=== PATIENT | female | born 1960 | race Caucasian/White ===

== ENCOUNTER 2016-07-19 10:15 | Emergency (ER) | payer OTHER ==
[2016-07-19 11:01] VITALS: RESP 16; TEMP 97.9
[2016-07-19] MEDS ORDERED: NS 500 ML IV ONE (11:11)
--- NOTE | 2016-07-19 11:44 | UCPHY ---
H & P Time Seen by Provider: 07/19/16 11:18 Patient Type: Established HPI/ROS: HPI Left-sided abdominal pain. 56-year-old female by private vehicle. Her is present with her. Prior history of breast cancer. No chemotherapy or radiation therapy currently or recently. Patient reports that she developed right-sided lateral abdominal pain last night at about 2:00 a.m.. Pain described as sharp and crampy. She was able to fall asleep. She woke up this morning at 6:00 a.m. and stated the pain was still present but had migrated higher to her left upper quadrant with radiation to the left flank area. ROS: Constitutional: No fever, no chills. No weakness. Eyes: No discharge. No changes in vision. ENT: No sore throat. No nasal congestion or rhinorrhea. Respiratory: No cough. No shortness of breath. Cardiac: No chest pain, no palpitations. Gastrointestinal: No abdominal pain, no vomiting, no diarrhea. Genitourinary: No hematuria. No dysuria or increased frequency with urination. Musculoskeletal: No back pain. No neck pain. No myalgias or arthralgias. Skin: No rashes. Neurological: No headache. No focal weakness or altered sensation. Past medical history: Breast cancer. Social history: . Here with her . As above. Physical Exam: General Appearance: Alert, no distress. This patient is responding to questions appropriately and in full sentences. This patient appears well- hydrated and well-nourished. Eyes: Pupils equal and round no pallor or injection. No lid edema, erythema or injection. Respiratory: There are no retractions, lungs are clear to auscultation with good air movement bilaterally. Cardiovascular: Regular rate and rhythm. No murmur. Gastrointestinal: Abdomen is soft with left upper lateral tenderness on palpation, no soft tissue changes, no masses, bowel sounds normal. No focal tenderness at McBurney's point. No Terry sign. Neurological: Motor sensory function is grossly intact. Cranial nerves are normal. Gait is normal. Skin: Warm and dry, no rashes. Musculoskeletal: No CVA tenderness bilaterally. Extremities are symmetrical. All joints range without pain or impingement. Psychiatric: No agitation. No depression. Database: EKG: Imaging: CT scan of abdomen and pelvis with IV contrast: Mild sigmoid diverticulitis. Otherwise this is a negative study. No abscess. No evidence of perforation. The left upper quadrant, lung bases appear normal. Otherwise negative study. Results were discussed with staff radiologist Dr. Lucas Oh. Procedures: Emergency department course: IV placed. She was placed on a monitor. She was started on IV normal saline with 500 cc to be given over the next hour. She is declining pain medication currently. I discussed CT imaging with her to evaluate for possible colitis versus ureterolithiasis. 1:25 p.m., patient re-evaluated. She is resting comfortably at this time. Repeat abdominal exam she is now nontender on palpation throughout her abdomen. Results of her CAT scan were discussed with her in detail. I discussed treatment as an outpatient for mild diverticulitis. She was in agreement. She was given 875 mg of Augmentin at urgent care. I will prescribe her this for continued treatment. I discussed follow-up through her primary care physician. Return to Urgent Care/emergency department precautions were reviewed with her. All of her questions were answered. She was discharged in good condition. Differential Diagnosis: The differential diagnosis on this patient includes but is not limited to colitis, diverticulitis, malignancy, ureterolithiasis. Pulmonary embolism, splenic injury, pyelonephritis unlikely. This represents a partial list of diagnoses considered. These considerations are based on history, physical exam , past history, reassessment and diagnostic testing. Smoking Status: Never smoked Constitutional: Initial Vital Signs Temperature (C) 36.6 C 07/19/16 10:54 Heart Rate 84 07/19/16 10:54 Respiratory Rate 16 07/19/16 10:54 Blood Pressure 145/65 H 07/19/16 10:54 O2 Sat (%) 98 07/19/16 10:54 O2 Delivery Mode Room Air Allergies/Adverse Reactions: metronidazole [From Flagyl] Allergy (Severe, Verified 07/19/16 11:00) Anaphylaxis Metronidazole HCl [From Flagyl] Allergy (Severe, Verified 07/19/16 11:00) Anaphylaxis gabapentin Allergy (Verified 07/19/16 11:00) Home Medications: Medication Instructions Recorded Amoxicillin/Clavulanate Pot 875 mg PO BID 10 Days 07/19/16 [Augmentin 875 mg tab] Medical Decision Making - Data Points Laboratory Results: Laboratory Results 07/19/16 11:48 07/19/16 11:48 01/30/17 11:48 WBC 5.03 10^3/uL (3.80-9.50) RBC 5.03 10^6/uL (4.18-5.33) Hgb 15.6 g/dL (12.6-16.3) Hct 45.5 % (38.0-47.0) MCV 90.5 fL (81.5-99.8) MCH 31.0 pg (27.9-34.1) MCHC 34.3 g/dL (32.4-36.7) RDW 13.2 % (11.5-15.2) Plt Count 213 10^3/uL (150-400) MPV 10.0 fL (8.7-11.7) Neut % (Auto) 68.1 % (39.3-74.2) Lymph % (Auto) 24.9 % (15.0-45.0) [place] % (Auto) 5.6 % (4.5-13.0) Eos % (Auto) 0.4 L % (0.6-7.6) Baso % (Auto) 0.8 % (0.3-1.7) Nucleat RBC Rel Count 0.0 % (0.0-0.2) Absolute Neuts (auto) 3.43 10^3/uL (1.70-6.50) Absolute Lymphs (auto) 1.25 10^3/uL (1.00-3.00) Absolute Monos (auto) 0.28 L 10^3/uL (0.30-0.80) Absolute Eos (auto) 0.02 L 10^3/uL (0.03-0.40) Absolute Basos (auto) 0.04 10^3/uL (0.02-0.10) Absolute Nucleated RBC 0.00 10^3/uL (0-0.01) Immature Gran % 0.2 % (0.0-1.1) Immature Gran # 0.01 10^3/uL (0.00-0.10) Sodium 140 mEq/L (134-144) Potassium 3.9 mEq/L (3.5-5.2) Chloride 104 mEq/L (97-110) Carbon Dioxide 24 mEq/l (22-31) Anion Gap 12 mEq/L (8-16) BUN 14 mg/dL (7-23) Creatinine 0.7 mg/dL (0.6-1.0) Estimated GFR > 60 Glucose 103 H mg/dL (70-100) Calcium 9.4 mg/dL (8.5-10.4) Urine Color YELLOW Urine Appearance CLEAR Urine pH 5.5 (5.0-7.5) Ur Specific Gideon 1.015 (1.002-1.030) Urine Protein NEGATIVE (NEGATIVE) Urine Ketones TRACE H (NEGATIVE) Urine Blood NEGATIVE (NEGATIVE) Urine Nitrate NEGATIVE (NEGATIVE) Urine Bilirubin NEGATIVE (NEGATIVE) Urine Urobilinogen 0.2 EU (0.2-1.0) Ur Leukocyte Esterase NEGATIVE (NEGATIVE) Urine RBC OCCASIONAL /hpf (0-3) Urine WBC OCCASIONAL /hpf (0-3) Ur Epithelial Cells 2+ H /lpf (NONE-1+) Urine Mucus TRACE /lpf (NONE-1+) Ur Culture Indicated? NOT INDICATED (NI) Urine Glucose NEGATIVE (NEGATIVE) Medications Given: Discontinued Medications Sodium Chloride (Ns) 500 mls @ 0 mls/hr IV ONCE ONE PRN Reason: Wide Open Stop: 07/19/16 11:12 Last Admin: 07/19/16 12:15 Dose: 500 mls Departure - Departure Disposition: Home, Routine, Self-Care Clinical Impression: Left sided abdominal pain Condition: Good Instructions: Diverticulitis (ED) Additional Instructions: Read and follow provided instructions. Follow-up with your primary care physician in 1-2 days for re-evaluation as discussed. Take medication as prescribed through entire course of treatment. Return to the emergency department for worsening pain, fever, blood in her stool , vomiting or other serious concerns. Referrals: [place],. [Primary Care Provider] - As per Instructions Prescriptions: Amoxicillin/Clavulanate Pot [Augmentin 875 mg tab] 875 mg PO BID 10 Days - PQRS PQRS Measurement: 134: Depression screening and followup, PRIME MD-PHQ2 (12 years and older) Over the last 2 weeks, how often have you been bothered by any of the following problems? 1. Feeling down, depressed, or hopeless? 2. Little interest or pleasure in doing things? Answered no to both questions. 130: Documentation of medications. Reviewed all patient medications, doses, route and frequency. 226: Do you smoke? No. 47: 65 and older: Advanced care planning. Patient designates surrogate decision maker as spouse. 51: 18 years old and older with diagnosis of COPD, spirometry performance. NA 52: 18 years old and older with COPD and symptoms of COPD or FEV1<60% predicted prescribed a B Agonist. NA
[2016-07-19 11:59] LABS: % IMMATURE GRANULYOCYTES 0.2 % (0.0-1.1); ABSOLUTE IMMATURE GRANULOCYTES 0.01 10^3/uL (0.00-0.10); ADD DIFF? NO; ADD MORPH? NO; ADD SCAN? NO; ATYPICAL LYMPHOCYTE FLAG 0 (0-99); FRAGMENT RBC FLAG 0 (0-99); HEMATOCRIT 45.5 % (38.0-47.0); HEMOGLOBIN 15.6 g/dL (12.6-16.3); LEFT SHIFT FLG 0 (0-99); LIPEMIA HEMOLYSIS FLAG 90 (0-99); MEAN CELL HEMOGLOBIN CONCENTR. 34.3 g/dL (32.4-36.7); MEAN CELL VOLUME 90.5 fL (81.5-99.8); PLATELET CLUMPS FLAG 0 (0-99); PLATELET COUNT 213 10^3/uL (150-400); RED BLOOD CELL COUNT 5.03 10^6/uL (4.18-5.33); RED CELL DISTRIBUTION WIDTH 13.2 % (11.5-15.2)
[2016-07-19 12:02] LABS: COLOR YELLOW; LEUKOCYTE ESTERASE,URINE NEGATIVE (NEGATIVE); NITRITE,URINE NEGATIVE (NEGATIVE); PH,URINE 5.5 (5.0-7.5)
[2016-07-19 12:12] LABS: ANION GAP 12 mEq/L (8-16); CALCIUM 9.4 mg/dL (8.5-10.4); CARBON DIOXIDE 24 mEq/l (22-31); CHLORIDE 104 mEq/L (97-110); CREATININE 0.7 mg/dL (0.6-1.0); GLOMERULAR FILTRATION RATE > 60; GLUCOSE 103 mg/dL (70-100); POTASSIUM 3.9 mEq/L (3.5-5.2); SODIUM 140 mEq/L (134-144)
[2016-07-19] MEDS ORDERED: IOPAMIDOL (ISOVUE 370) 100 ML BTL IV ONE (12:15)
[2016-07-19 12:19] LABS: MUCUS TRACE /lpf (NONE-1+); RBC,URINE OCCASIONAL /hpf (0-3); WBC,URINE OCCASIONAL /hpf (0-3)
--- NOTE | 2016-07-19 13:22 | CT ---
CT Scan of the Abdomen and Pelvis (With Contrast) July 19, 2016 at 1228 hours. Indication: Left lower quadrant abdominal pain. Comparison: October 2009. Technique: 90 mL of Isovue 300 were given intravenously by machine power injection. [facility] performed from the diaphragm to the symphysis pubis. Dose reduction techniques w ere utilized. Findings: Abdomen: The lung bases are clear. A 13-mm hepatic cyst is seen in the dome of the liver. Gallbladde r is unremarkable. Pancreas is normal in size and appearance. Both adrenal glands are normal in size and appearance. Subcentimeter probable renal cortical cysts are seen in both kidneys, similar in appe arance. Spleen is unremarkable. No significant abdominal lymphadenopathy. Pelvis: Mild bowel wall thickening in the sigmoid colon and a few diverticuli. No adjacent inflammato ry change in the mesentery. Moderate stool is seen in the colon. Degenerative change is seen in the l umbar spine and both hips. No significant free fluid in the pelvis. No evidence for free intraperiton eal air. Impression: Probable mild diverticulitis in the sigmoid colon. Moderate constipation. Results discussed with Dr. Karmen Sandy.
[2016-07-19] MEDS ORDERED: AMOXICILLIN/CLAVULANATE POT 875/125 MG TAB PO ONE (13:29)
[2016-07-19 13:59] VITALS: BP 137/77; PULSE 63; O2SAT 97
== END 2016-07-19 13:56 | disposition home or self-care (01) ==
LOC: CED 10:15
DX: K57.92 Diverticulitis of intestine, part unspecified, without perforation or abscess without bleeding (principal); Z85.3 Personal history of malignant neoplasm of breast
CPT/HCPCS: 74177-PO; 80048-PO; 81003-PO; 81015-PO; 85025-PO; 96360-PO; 99215-PO; G0463-PO; Q9967